=== PATIENT | male | born 1965 | race Caucasian/White ===

== ENCOUNTER 2019-02-26 12:35 | Outpatient (CLI) | payer OTHER ==
--- NOTE | 2019-02-26 15:59 | Diagnostic Imaging Report ---
PATIENT MR#: [id number] PATIENT PATIENT NAME: SHANNAN VEGA DATE OF : 1965 REFERRING PHYSICIAN: Georgie Jacinto EXAM DATE: 02/26/2019 ACCESSION NUMBER: [id number] EXAM DESCRIPTION: CT ABD PELVIS W/ CON Exam: CT abdomen and pelvis with contrast. History: Lower abdominal pain for 4 weeks. Axial images through the abdomen and pelvis after IV infusion of 94 cc Omnipaque 350 is submitted faustino ng with sagittal and coronal reformatted images. The visualized lower lung brito are clear. No free intraperitoneal air is identified. The gallbladder is distended without stones. The liver, spleen and pancreas are normal attenuation a nd enhancement. The adrenal glands are normal configuration. The abdominal aorta is of normal caliber. No periaorti c lymphadenopathy is identified. Both kidneys are normal attenuation and enhancement without hydronephrosis. The urinary bladder is d istended without trabeculation. The appendix is not well visualized. The small bowel is of normal caliber. Mucosal thickening with surrounding streaky fat adjacent to the sigmoid colon is noted suggestive of a diverticulitis. No gavi abscess formatio n is identified. No bony abnormalities are identified. Impression: No hydronephrosis. The appendix is not well visualized. Sigmoid diverticulitis without gavi abscess formation. Read by: Dr. Geovanny Thomas Transcribed by: Transcribed Date: Electronically signed by: Dr. Geovanny Thomas Date signed: 02/26/2019 3:58:44 PM
== END 2019-02-26 12:45 ==
LOC: RAD 12:35
PROVIDERS: ATTEND Nurse Practitioner Family
DX: R10.31 Right lower quadrant pain (principal); R10.32 Left lower quadrant pain; R39.89 Other symptoms and signs involving the genitourinary system
CPT/HCPCS: 74177; Q9967